=== PATIENT | female | born 1985 | race Hispanic/Latino ===

== ENCOUNTER 2017-10-12 10:20 | Emergency (ER) | payer SELFPAY ==
[2017-10-12 11:04] LABS: HCG Qualitative,Urine Negative (Negative)
[2017-10-12 11:06] LABS: Bilirubin,Urine NEG (Negative); Blood,Urine MOD (Negative); Color,Urine Yellow (Yellow); Mucus,Urine FEW /HPF; Protein,Urine <15 mg/dL mg/dL (Negative); Urobilinogen,Urine < 2.0 mg/dL (<2.0)
[2017-10-12] MEDS ORDERED: TORADOL IV ONE (11:59)
[2017-10-12] MEDS ORDERED: NACL 0.9% 1000 ML 1,000 ML IV ONE (11:59)
[2017-10-12] MEDS ORDERED: ZOFRAN IV ONE (11:59)
--- NOTE | 2017-10-12 12:01 | Emergency Department Report ---
ED Abdominal Pain HPI - General Chief Complaint: Abdominal Pain Stated Complaint: BILATERAL FLANK/BACK PAIN Time Seen by Provider: 10/12/17 11:53 Source: patient Mode of arrival: Ambulatory Limitations: No Limitations - History of Present Illness Initial Comments: 31-year-old female past medical history kidney stones presents with complaint of acute onset of lower back pain and dysuria since this morning. Patient is awake alert and oriented 3. LMP 10/11. Worse on right than left. MD Complaint: abdominal pain, flank pain -: This morning Location: R flank Radiation: R flank Severity: moderate Severity scale (0 -10): 6 Quality: aching, sharp Consistency: intermittent, colicky Worsens With: movement - Related Data Previous Rx's Medication Instructions Recorded Last Taken Type Ciprofloxacin HCl [Cipro] 500 mg PO BID #14 tablet 10/12/17 Unknown Rx HYDROcodone/APAP 5-325 [Pelham 1 each PO Q6HR PRN #15 tablet 10/12/17 Unknown Rx 5/325] Ibuprofen [Motrin] 800 mg PO Q8HR PRN #25 tablet 10/12/17 Unknown Rx Ondansetron [Zofran Odt] 4 mg PO Q8H PRN #12 tab.rapdis 10/12/17 Unknown Rx Allergies Allergy/AdvReac Type Severity Reaction Status Date / Time No Known Allergies Allergy Unverified 10/12/17 10:25 ED Review of Systems ROS: Stated complaint: BILATERAL FLANK/BACK PAIN Other details as noted in HPI Constitutional: denies: chills, fever Eyes: denies: eye pain, eye discharge, vision change ENT: denies: ear pain, throat pain Respiratory: denies: cough, shortness of breath, wheezing Cardiovascular: denies: chest pain, palpitations Endocrine: no symptoms reported Gastrointestinal: as per HPI. denies: abdominal pain, nausea, diarrhea Genitourinary: denies: urgency, dysuria, discharge Musculoskeletal: denies: back pain, joint swelling, arthralgia Skin: denies: rash, lesions Neurological: denies: headache, weakness, paresthesias Psychiatric: denies: anxiety, depression Hematological/Lymphatic: denies: easy bleeding, easy bruising ED Past Medical Hx - Past Medical History Additional medical history: Kidney stones - Surgical History Past Surgical History?: No - Social History Smoking Status: Current Every Day Smoker Substance Use Type: Alcohol - Medications Home Medications: Home Medications Medication Instructions Recorded Confirmed Last Taken Type Ciprofloxacin HCl [Cipro] 500 mg PO BID #14 tablet 10/12/17 Unknown Rx HYDROcodone/APAP 5-325 [P[place]ham 1 each PO Q6HR PRN #15 tablet 10/12/17 Unknown Rx 5/325] Ibuprofen [Motrin] 800 mg PO Q8HR PRN #25 tablet 10/12/17 Unknown Rx Ondansetron [Zofran Odt] 4 mg PO Q8H PRN #12 tab.rapdis 10/12/17 Unknown Rx ED Physical Exam - General Limitations: No Limitations General appearance: alert, in no apparent distress - Head Head exam: Present: atraumatic, normocephalic - Eye Eye exam: Present: normal appearance - ENT ENT exam: Present: mucous membranes moist - Neck Neck exam: Present: normal inspection - Respiratory Respiratory exam: Present: normal lung sounds bilaterally. Absent: respiratory distress - Cardiovascular Cardiovascular Exam: Present: regular rate, normal rhythm. Absent: systolic murmur, diastolic murmur, rubs, gallop - GI/Abdominal GI/Abdominal exam: Present: soft, tenderness (right flank pain), normal bowel sounds - Extremities Exam Extremities exam: Present: normal inspection - Back Exam Back exam: Present: normal inspection, CVA tenderness (R) - Neurological Exam Neurological exam: Present: alert, oriented X3, CN II-XII intact, normal gait - Psychiatric Psychiatric exam: Present: normal affect, normal mood - Skin Skin exam: Present: warm, dry, intact, normal color. Absent: rash ED Course Vital Signs 10/12/17 10/12/17 10/12/17 10:25 12:40 13:55 Temperature 97.8 F Pulse Rate 98 H 77 Respiratory 18 16 16 Rate Blood Pressure 187/102 Blood Pressure 156/103 [Left] O2 Sat by Pulse 99 99 Oximetry ED Medical Decision Making - Lab Data Result diagrams: 10/12/17 12:51 10/12/17 12:48 - Medical Decision Making A/P: Renal colic 1-CT shows no hydronephrosis, moderate right perinephric stranding. This patient states she has dysuria with moderate leukocytes and urinalysis will treat empirically as pyelonephritis. Empiric course of ciprofloxacin 2-advised patient to return to the ED for any fevers chills worsened pain and inability to void urine or inability to tolerate anything by mouth 3-Pelham when necessary, Zofran when necessary. I advised patient to remain well -hydrated 4- follow-up with [facility] Critical care attestation.: If time is entered above; I have spent that time in minutes in the direct care of this critically ill patient, excluding procedure time. ED Disposition Clinical Impression: Renal colic on right side, Pyelonephritis Disposition: TO HOME OR SELFCARE Is pt being admited?: No Does the pt Need Aspirin: No Condition: Stable Instructions: Renal Colic (ED), Acute Pyelonephritis (ED), Flank Pain (ED) Prescriptions: Ciprofloxacin HCl [Cipro] 500 mg PO BID #14 tablet HYDROcodone/APAP 5-325 [Pelham 5/325] 1 each PO Q6HR PRN #15 tablet PRN Reason: Pain Ibuprofen [Motrin] 800 mg PO Q8HR PRN #25 tablet PRN Reason: Pain , Severe (7-10) Ondansetron [Zofran Odt] 4 mg PO Q8H PRN #12 tab.rapdis PRN Reason: Nausea Referrals: [facility] [Provider Group] - 3-5 Days [facility] [Provider Group] - 3-5 Days Forms: Accompanied Note, Work/School Release Form(ED) Time of Disposition: 14:12
[2017-10-12] MEDS ORDERED: DILAUDID IV ONE (12:33)
--- NOTE | 2017-10-12 12:36 | Cat Scan Report ---
CT ABDOMEN PELVIS WITHOUT CONTRAST: HISTORY: Flank pain, renal colic. COMPARISON: none. TECHNIQUE: Helical CT in 1.25mm intervals without IV contrast. Sagittal and coronal reconstructions. FINDINGS: Lung bases: Normal. Liver: Normal. Biliary system: Normal. Pancreas: Normal. Spleen: Normal. Kidneys/ureters/bladder: The kidneys are normal size, contour and position. There are 3 or 4 calyceal stones in both kidneys measuring less than 3 mm. There is mild right perinephric stranding. No evidence for ureteral stones, hydronephrosis, cystic disease or large mass. The ureters are normal course and caliber. The bladder is unremarkable. Adrenal glands: Normal. Aorta: Normal. Intestines: Within normal limits given no oral contrast was administered. Appendix: Normal. Pelvic viscera: Normal. Ascites: None. Adenopathy: None. Musculoskeletal: Normal. IMPRESSION: Bilateral nephrolithiasis as described. No evidence for hydronephrosis.
[2017-10-12] MEDS ORDERED: ROCEPHIN/NS 1 GM/50 ML 1 GM/50 ML BAG IV ONE (12:50)
[2017-10-12 13:00] LABS: Basophils # (Auto) 0.1 K/mm3 (0.0-0.1); Basophils % (Auto) 0.7 % (0.0-1.8); Eosinophils # (Auto) 0.1 K/mm3 (0.0-0.4); Eosinophils % (Auto) 0.9 % (0.0-4.3); Hematocrit 35.2 % (30.3-42.9); Hemoglobin 11.7 gm/dl (10.1-14.3); Lymphocytes # (Auto) 1.6 K/mm3 (1.2-5.4); Lymphocytes % (Auto) 14.8 % (13.4-35.0); Mean Corpuscular HGB Conc 33 % (30-34); Mean Corpuscular Hemoglobin 34 pg (28-32); Mean Corpuscular Volume 102 fl (79-97); Monocytes # (Auto) 0.8 K/mm3 (0.0-0.8); Monocytes % (Auto) 7.5 % (0.0-7.3); Platelet Count 216 K/mm3 (140-440); Red Blood Count 3.46 M/mm3 (3.65-5.03); Red Cell Distribution Width 16.9 % (13.2-15.2)
[2017-10-12] MEDS ORDERED: cefTRIAXone 1 GM in NACL 0.9% 20 ML IV ONE (13:00)
[2017-10-12 13:21] LABS: BUN/Creatinine Ratio 14; Blood Urea Nitrogen 7 mg/dL (7-17); Hemolysis Index 6
[2017-10-12 13:55] VITALS: BP 156/103
== END 2017-10-12 14:34 | disposition home or self-care (01) ==
LOC: ED 10:20
DX: N23 Unspecified renal colic (principal); N12 Tubulo-interstitial nephritis, not specified as acute or chronic; F17.200 Nicotine dependence, unspecified, uncomplicated
CPT/HCPCS: 36415; 74176; 80048; 81001; 81025; 82550; 85025; 87076; 87086; 87186; 96361; 96365; 96375; 99284; J0696; J1170; J1885; J2405; J7030